=== PATIENT | male | born 1975 | race Caucasian/White ===

== ENCOUNTER 2020-03-07 09:28 | Outpatient (CLI) | payer OTHER, SELFPAY ==
--- NOTE | 2020-03-07 10:02 | ECG_ITS ---
Measurements Intervals [place] Rate: 50 P: 51 [place]: 179 QRS: 42 QRSD: 97 T: 49 QT: 422 QTc: 388 SINUS BRADYCARDIA No previous ECG available for comparison Electronically Signed On 03-07-2020 18:48:46 CDT by Jose Alfredo Tierney M.D. [email or web address]
[2020-03-07 10:07] LABS: Basophils % 0.8 %; Eosinophils # 0.2 10^3/uL (0.0-0.8); Eosinophils % 3.9 %; Hematocrit 42.5 % (42.0-52.0); Hemoglobin 15.1 g/dL (11.7-16.6); Lymphocytes # 1.4 10^3/uL (0.8-4.8); Mean Corpuscular HGB Conc 35.5 g/dL (30.0-36.0); Mean Corpuscular Hemoglobin 33.2 pg (28.0-34.0); Mean Corpuscular Volume 93.4 fL (80-94); Mean Platelet Volume 10.5 fL (7.4-10.4); Monocytes # 0.5 10^3/uL (0.2-0.9); Monocytes % 8.8 %; Neutrophils % 58.5 %; Nucleated Red Blood Cells % 0 %; Platelet Count 163 10^3/cmm (130-400); Red Blood Count 4.55 10^6/uL (4.1-5.3); Red Cell Distribution Width 11.7 % (12.1-15.1); White Blood Count 5.1 10^3/uL (4.0-10.0)
[2020-03-07 10:17] LABS: Anion Gap 14.5 (5-19); Blood Urea Nitrogen 14 mg/dL (6-20); Calcium 9.2 mg/dL (8.5-10.5); Carbon Dioxide 28 mmol/L (22-29); Chloride 101 mmol/L (98-107); Glomerular Filtration Rate 73.1 mL/min (90-130); Glucose 98 mg/dL (65-115); Osmolality Calculated 284 mOsm/kg (285-295); Potassium 4.5 mmol/L (3.5-5.1); Sodium 139 mmol/L (136-145)
== END 2020-03-07 09:29 | disposition home or self-care (01) ==
LOC: RT 09:32
PROVIDERS: Visit Provider Specialist
DX: Z01.810 Encounter for preprocedural cardiovascular examination (principal); R00.1 Bradycardia, unspecified
CPT/HCPCS: 36415; 80048; 85025; 93005